=== PATIENT | female | born 1935 | race Caucasian/White ===

== ENCOUNTER 2019-10-25 14:31 | Outpatient (CLI) | payer MEDICARE, SELFPAY ==
--- NOTE | 2019-10-25 15:03 | XR_ITS ---
WS: [id number] DEXA (DUAL ENERGY X-RAY ABSORPTIOMETRY) Bone mineral density was performed using a [employer] machine. HISTORY: OSTEOPOROSIS COMPARISON: 11/10/2016 Lumbar spine BMD (L1-L4): 1.120 g/cm2 T score: -0.5 Z score: 1.3 Total hip BMD: Left: 0.701 g/cm2. T score: -2.4 Z score: -0.3 Right: 0.712 g/cm2. T score: -2.3 Z score: -0.2 10 year probability of a major osteoporotic fracture is 33%. Compared to the prior study from 11/10/2016. Lumbar spine bone mineral density has decreased by 0.2%. Bilateral hips bone mineral density has increased by 1.1%. Asymmetric disc space narrowing with sclerosis involving the endplates in the lumbar spine most signi ficant at L1-2, L3-4 and L4-5. XR/XR DEXA axial skeleton* [id number] IMPRESSION: OSTEOPENIA based upon the WHO classification for females. No significant change in bone mineral density since the prior study.
== END 2019-10-25 14:32 | disposition home or self-care (01) ==
LOC: RADWPI 14:37
PROVIDERS: Family Provider Family Medicine; PCP Family Medicine; Visit Provider Family Medicine
DX: M81.0 Age-related osteoporosis without current pathological fracture (principal); M85.89 Other specified disorders of bone density and structure, multiple sites
CPT/HCPCS: 77080

== ENCOUNTER 2020-10-24 09:50 | Outpatient (CLI) | payer MEDICARE, SELFPAY ==
--- NOTE | 2020-10-24 10:06 | FL_ITS ---
WS: [id number] Modified barium swallow, 10/24/2020 Clinical Data: Other dysphagia Comparison: None. Fluoroscopy time: 1.9 minutes. Findings: In the oral phase there was mild premature spillage. The pharyngeal phase there is no aspiration or p enetration. No residue was seen. After swallowing the barium tablet there was minimal delay in the pa ssage of the tablet. This may be a result of tertiary contractions in the distal esophagus. FL/FL barium swallow modifd [id number] Impression: 1. Mild premature spillage in the oral phase. 2. No aspiration or penetration of the pharyngeal phase. 3. Minimal hesitation in passage of the barium tablet and the patient may have tertiary contractions of the distal esophagus.
== END 2020-10-24 09:51 | disposition home or self-care (01) ==
LOC: RAD 09:54
PROVIDERS: PCP Family Medicine; Visit Provider Family Medicine
DX: T17.920A Food in respiratory tract, part unspecified causing asphyxiation, initial encounter (principal); X58.XXXA Exposure to other specified factors, initial encounter
CPT/HCPCS: 74230; 92611

== ENCOUNTER 2023-03-22 14:14 | Outpatient (CLI) | payer MEDICARE, MEDICAID, SELFPAY ==
--- NOTE | 2023-03-22 14:21 | XR_ITS ---
WS: [id number] SCREENING DEXA SCAN [employer] CLINICAL INFORMATION: POSTMENOPAUSAL COMPARISON: 2019 FINDINGS: The L1-L4 bone mineral density measures 1.171 g/cm2. This corresponds to a T score score of -0.1 and Z score of 1.7. Left femoral neck bone mineral density measures 0.692 g/cm2. This corresponds to a T score of -2.5 an d Z score of -0.3. Right femoral neck bone mineral density measures 0.704 g/cm2. This corresponds to a T score -2.4of an d Z score of -0.2. Mean femoral neck bone mineral density measures 0.698 g/cm2. This corresponds to a T score of -2.5 an d Z score of -0.2. IMPRESSION: Normal bone mineralization lumbar spine. Osteoporosis femoral necks at the lower end of the range. Patient's FRAX calculated 10 year probability for major osteoporotic fracture is 35.7% and osteoporot ic hip fracture is 14.0%. Bone mineral density lumbar spine increased 4.6% Bone mineral density femoral necks decreased -1.3%
== END 2023-03-22 14:15 | disposition home or self-care (01) ==
LOC: RAD 14:14
PROVIDERS: PCP Family Medicine; Visit Provider Family Medicine
DX: Z78.0 Asymptomatic menopausal state (principal); M81.8 Other osteoporosis without current pathological fracture
CPT/HCPCS: 77080

== ENCOUNTER → 2023-12-16 13:40 | Outpatient (BNVA) | payer MEDICARE, MEDICAID, SELFPAY | PROVIDERS: PCP Family Medicine; Referring Provider Family Medicine; Visit Provider Specialist | DX: R20.0 Anesthesia of skin; R20.2 Paresthesia of skin; G62.89 Other specified polyneuropathies | CPT/HCPCS: 95910 ==

== ENCOUNTER 2024-08-23 11:46 | Oncology outpatient (recurring) (ONCR) | payer MEDICARE, MEDICAID, SELFPAY ==
[2024-08-21 09:21] LABS: Basophils # 0.1 10^3/uL (0.0-0.1); Basophils % 0.6 %; Eosinophils # 0.3 10^3/uL (0.0-0.8); Eosinophils % 3.9 %; Hematocrit 45.5 % (36-47); Lymphocytes # 1.4 10^3/uL (0.8-4.8); Lymphocytes % 18.3 %; Mean Corpuscular HGB Conc 32.7 g/dL (30-55); Mean Corpuscular Hemoglobin 31.8 pg (27-33); Mean Platelet Volume 9.7 fL (7.4-10.4); Monocytes # 0.5 10^3/uL (0.2-0.9); Monocytes % 6.1 %; Neutrophils # 5.44 10^3/uL (1.8-7.7); Neutrophils % 70.7 %; Nucleated Red Blood Cells % 0 %; Platelet Count 243 10^3/cmm (157-399); Red Blood Count 4.69 10^6/uL (3.85-5.65); Red Cell Distribution Width 13.8 % (12.1-15.1)
[2024-08-21 09:39] LABS: Alanine Aminotransferase 21 U/L (0-33); Albumin Level 4.2 g/dL (3.5-5.2); Alkaline Phosphatase 176 U/L (35-105); Aspartate Amino Transferase 23 U/L (0-32); Blood Urea Nitrogen 13 mg/dL (8-23); Calcium 8.4 mg/dL (8.5-10.5); Carbon Dioxide 23 mmol/L (22-29); Chloride 105 mmol/L (98-107); Creatinine Clr Calc Pharmacy 43.3772; Globulin 3.2 g/dL (1.3-4.6); Glucose 99 mg/dL (65-115); Immunoglobulin IGA 152 mg/dL (70-400); Immunoglobulin IGG 1231 mg/dL (700-1600); Immunoglobulin IGM 29 mg/dL (40-230); Osmolality Calculated 286 mOsm/kg (285-295); Sodium 138 mmol/L (136-145); Total Bilirubin 0.5 mg/dL (0.15-1.2); Total Protein 7.4 g/dL (6.6-8.7)
[2024-08-22 13:04] LABS: KAPPA LIGHT CHAIN, FREE, SERUM 21.4 mg/L (3.3-19.4); KAPPA/LAMBDA LIGHT CHAINS FREE 1.49 (0.26-1.65); LAMBDA LIGHT CHAIN, FREE, SERU 14.4 mg/L (5.7-26.3)
[2024-08-24 05:40] LABS: CREATININE, 24 HOUR URINE 0.73 g/24 h (0.50-2.15); PROTEIN, TOTAL, 24 HR UR 192 mg/24 h (<150); Protein/Creatinine Ratio 0.262 (<0.150); Protein/Creatinine Ratio 262 mg/g creat (<150)
== END 2024-08-23 23:59 | disposition home or self-care (01) ==
PROVIDERS: PCP Family Medicine; Visit Provider Internal Medicine Medical Oncology
DX: D47.2 Monoclonal gammopathy (principal); G62.89 Other specified polyneuropathies
CPT/HCPCS: 36415; 80053; 82784; 83883; 84156; 84166; 85025; 86334; 86335; 99204

== ENCOUNTER 2024-09-07 15:13 | Oncology outpatient (recurring) (ONCR) | payer MEDICARE, SELFPAY | END 2024-09-23 23:59 | disposition home or self-care (01) | PROVIDERS: PCP Family Medicine; Visit Provider Internal Medicine Medical Oncology | DX: D47.2 Monoclonal gammopathy (principal); G62.9 Polyneuropathy, unspecified | CPT/HCPCS: 99213 ==

== ENCOUNTER 2024-11-03 12:16 | Outpatient (RCR) | payer MEDICARE, MEDICAID, SELFPAY | END 2024-11-23 23:59 | disposition home or self-care (01) | LOC: SPT 12:16 | PROVIDERS: Visit Provider Family Medicine | DX: M54.50 Low back pain, unspecified (principal) | CPT/HCPCS: 97110; 97161 ==

== ENCOUNTER → 2025-02-15 07:58 | Outpatient (BNVA) | payer MEDICARE, MEDICAID, SELFPAY | PROVIDERS: Visit Provider Dermatology | DX: L82.1 Other seborrheic keratosis (principal); D22.39 Melanocytic nevi of other parts of face; Z08 Encounter for follow-up examination after completed treatment for malignant neoplasm; Z85.828 Personal history of other malignant neoplasm of skin; D48.5 Neoplasm of uncertain behavior of skin; L57.0 Actinic keratosis | CPT/HCPCS: 11102; 17000; 99203 ==

== ENCOUNTER → 2025-03-05 13:06 | Outpatient (BNVA) | payer MEDICARE, MEDICAID, SELFPAY | PROVIDERS: Visit Provider Dermatology | DX: C44.729 Squamous cell carcinoma of skin of left lower limb, including hip (principal) | CPT/HCPCS: 17311 ==

== ENCOUNTER → 2025-03-06 08:47 | Outpatient (BNVA) | payer MEDICARE, MEDICAID, SELFPAY | PROVIDERS: Referring Provider Family Medicine; Visit Provider Specialist | DX: Z86.73 Personal history of transient ischemic attack (TIA), and cerebral infarction without residual deficits (principal); G62.89 Other specified polyneuropathies; I10 Essential (primary) hypertension; E11.9 Type 2 diabetes mellitus without complications | CPT/HCPCS: 36415; 82607; 83036; 84439; 85651; 86160; 86162; 86235; 86255; 86376; 99204 ==

== ENCOUNTER 2025-03-19 10:46 | Oncology outpatient (recurring) (ONCR) | payer MEDICARE, MEDICAID, SELFPAY ==
[2025-03-01 14:18] LABS: Hematocrit 43.5 % (36-47); Hemoglobin 14.10 g/dL (11.27-16.99); Mean Corpuscular HGB Conc 32.4 g/dL (30-55); Mean Corpuscular Hemoglobin 31.3 pg (27-33); Mean Corpuscular Volume 96.7 fl (85-98); Nucleated Red Blood Cells % 0 %; Platelet Count 239 10^3/cmm (157-399); Red Blood Count 4.50 10^6/uL (3.85-5.65); White Blood Count 7.58 10^3/uL (3.29-11.43)
[2025-03-01 14:34] LABS: Alanine Aminotransferase 16 U/L (0-33); Albumin Level 4.1 g/dL (3.5-5.2); Alkaline Phosphatase 112 U/L (35-105); Anion Gap 13.0 (5-19); Aspartate Amino Transferase 16 U/L (0-32); Blood Urea Nitrogen 24 mg/dL (8-23); Calcium 9.4 mg/dL (8.5-10.5); Carbon Dioxide 25 mmol/L (22-29); Chloride 103 mmol/L (98-107); Globulin 2.9 g/dL (1.3-4.6); Glucose 102 mg/dL (65-115); Osmolality Calculated 288 mOsm/kg (285-295); Potassium 4.0 mmol/L (3.5-5.1); Sodium 137 mmol/L (136-145); Total Protein 7.0 g/dL (6.6-8.7)
[2025-03-02 08:59] LABS: PROTEIN, TOTAL 6.7 g/dL (6.1-8.1)
[2025-03-02 14:14] LABS: KAPPA LIGHT CHAIN, FREE, SERUM 23.9 mg/L (3.3-19.4); KAPPA/LAMBDA LIGHT CHAINS FREE 1.63 (0.26-1.65); LAMBDA LIGHT CHAIN, FREE, SERU 14.7 mg/L (5.7-26.3)
[2025-03-02 18:40] LABS: ALPHA 1 GLOBULIN 0.2 g/dL (0.2-0.3); ALPHA 2 GLOBULIN 0.8 g/dL (0.5-0.9); BETA 1 GLOBULIN 0.4 g/dL (0.4-0.6); BETA 2 GLOBULIN 0.3 g/dL (0.2-0.5)
--- NOTE | 2025-03-19 10:45 | USCV_ITS ---
ElsieолегYin Age: 89 Gender: F : 1935 Exam Date: 03/19/2025 10:57 Ordering Phys: Shelbie Correa MD Technologist: Exam Location: [facility] [place] Indication: hx of TIA Risk Factors: Previous Vascular Surgery: Right Brachial BP: / Left Brachial BP: / Right Left Velocity (cm/s) Spectral Plaque Velocity (cm/s) Spectral Plaque Syst/Diast Broadening Syst/Diast Broadening 74.20/ 14.30 Prox CCA 62.20 / 13.30 76.10/ 15.10 Mid CCA 55.80 / 12.50 49.50/ 9.50 Distal CCA 54.10 / 14.10 40.30/ 7.30 Prox ICA 36.50 / 8.90 47.50/ 13.00 Mid ICA 41.50 / 14.30 59.00/ 20.10 Distal ICA 50.30 / 17.20 53.70 ECA 68.50 0.80 ICA/CCA 0.70 Antegrade Vertebral Antegrade 38.00/ 13.50 cm/s 38.90/ 12.80 cm/s Bi Subclavian Tri 73.50 75.80 CONCLUSIONS Right ICA stenosis <50%. Mild atheromatous plaque right carotid bulb/ICA. Left ICA stenosis <50%. Mild atheromatous plaque left carotid bulb/ICA. Intimal thickening in the common carotid arteries and internal carotid arteries bilaterally. Normal antegrade Doppler flow noted in the right vertebral artery. Normal antegrade Doppler flow noted in the left vertebral artery. Dami Baker MD (Electronically Signed) Final Date: 19 March 2025 11:29 S
== END 2025-03-25 23:59 | disposition home or self-care (01) ==
LOC: ONCMED 10:47 → RAD 03-20
PROVIDERS: Visit Provider Internal Medicine Medical Oncology
DX: D47.2 Monoclonal gammopathy; R03.0 Elevated blood-pressure reading, without diagnosis of hypertension; Z48.817 Encounter for surgical aftercare following surgery on the skin and subcutaneous tissue; G62.89 Other specified polyneuropathies; R41.3 Other amnesia; Z86.73 Personal history of transient ischemic attack (TIA), and cerebral infarction without residual deficits; I65.23 Occlusion and stenosis of bilateral carotid arteries
CPT/HCPCS: 36415; 80053; 83883; 84155; 84165; 85025; 86334; 86880; 93880; 99212; 99213

== ENCOUNTER → 2025-04-02 11:21 | Outpatient (BNVA) | payer MEDICARE, MEDICAID, SELFPAY | PROVIDERS: Visit Provider Dermatology | DX: Z48.817 Encounter for surgical aftercare following surgery on the skin and subcutaneous tissue (principal) | CPT/HCPCS: 99212 ==